=== PATIENT | female | born 1955 | race Caucasian/White ===

== ENCOUNTER 2018-10-04 05:57 | Day surgery (SDC) | payer OTHER ==
[2018-10-04] MEDS ORDERED: PROPOFOL 40 ML (07:29)
== END 2018-10-04 11:13 | disposition home or self-care (01) ==
LOC: GIL 05:57
DX: Z12.11 Encounter for screening for malignant neoplasm of colon (principal); K64.8 Other hemorrhoids; K57.30 Diverticulosis of large intestine without perforation or abscess without bleeding; B37.81 Candidal esophagitis; K29.50 Unspecified chronic gastritis without bleeding; E03.9 Hypothyroidism, unspecified
CPT/HCPCS: 43239; 88305; 88312